=== PATIENT | female | born 1980 | race Caucasian/White ===

== ENCOUNTER 2025-02-13 00:39 | Day surgery (SDC) | payer BC, SELFPAY ==
[2025-02-04 13:08] VITALS: BMI 30.4
--- NOTE | 2025-02-04 13:19 | PC.NURSE ---
Addendum entered by Asael Pepe RN 02/04/25 13:26: No food or drink after midnight. Original Note: Report to the Outpatient Waiting Room, entrance under the green pavilion located off [facility], at time _0745_ on date _[id number]_. Planned Procedure Time: _0945_. Time changes happen often and if your time is changed the preop area will call you the afternoon before. - You and your visitor will be asked to self-screen and do not enter if you have any COVID symptoms. Please call surgeon if you need to reschedule. - A mask is optional within the hospital at this time. - No food from midnight until time of surgery and no smoking, or chewing tobacco (or any form of nicotine). No chewing gum, candy or mints. Take only the following medications with a SIP of water on the morning of surgery: __None___ DO NOT STOP ANY OF YOUR OTHER PRESCRIPTION MEDICATIONS PRIOR TO SURGERY EXCEPT THE FOLLOWING Hold all vitamins and supplements for 3 days per anesthesiologist. Medications to discontinue per physician ____Zepbound, skip dose this sunday._ Date to take last dose Please no make-up, nail turkish, hairspray, perfume, deodorant, or body powder the day of surgery. No jewelry (including any body piercings) or valuables the day of surgery, leave them at home. Please take a shower or bath the night before, or the morning of, surgery with an antibacterial soap. Wear comfortable, loose fitting clothing. - Jewelry must be removed prior to entering the operating room. Rings and piercings that are not removed may be cut off. - The hospital will not accept responsibility for valuables. - Please leave all valuables, including medications, at home the day of surgery. If you are going home after surgery, a licensed emergency medical technician/driver must drive you home. - NO public transportation without another adult if you receive anesthesia. - We recommend that an adult stay with you for 24 hours following discharge. - We also recommend that you do not drive, make important decision, drink alcoholic beverages, or take any drugs that were not prescribed by your health care provider for at least 24 hours after your discharge time. Follow any additional instructions given to you from your surgeon. Telephone instructions given to __Dawn__and asked if any additional questions and then verbalized understanding. Patient advised to call surgeon office or pre surgery nurse liaison [phone] if any additional questions.
--- OUTSIDE RECORDS SUMMARY | 2025-02-13 00:42 | XMS_ITS | Clinical Summary ---
Author Organization [facility] Address [address] [place] [id number] Care Team Providers Care Chucking Lathe Operator Name Role Phone Unavailable Primary Care Provider Unavailabl e Social History Tobacco Use Types Packs/Day Years Used Date Smoking Tobacco: Never Assessed Comments Unknown Sex and Gender Information Value Date Recorded Sex Assigned at Not on file Legal Sex Female 7:33 PM CDT Gender Identity Not on file Sexual Orientation Not on file Plan of Treatment Health Maintenance Due Date Last Done Comments Cervical Cancer Screening Pa p Smear (Age 30 to 64) Every 3 Years 1981 Annual Physical 1984 Hepatitis C 1999 DTaP, Tdap and Td Vaccines ( 1 - Tdap) 2000 Hepatitis B Vaccines (1 of 3 - 19+ 3-dose series) 2000 Cervical Cancer Screening Pa p with HPV Testing (Age 30 to 64) Every 5 Years 2011 Cervical Cancer Screening with HPV 2011 Mammogram Screening 2021 COVID-19 Vaccine (2023-2 5 season) 2024 HPV Vaccines Aged Out No longer eligi ble based on patient's age to complete this topic Meningococcal B Vaccine Aged Out No l onger eligible based on patient's age to complete this topic Meningococcal Vaccine Aged Out No lele azar eligible based on patient's age to complete this topic Pneumococcal Vaccine: Pediat rics (0 to 5 Years) and At-Risk Patients (6 to 49 Years) Aged Out No longer eligible b ased on patient's age to complete this topic RSV Immunizations Under 20 Months Aged Out No longer eligible based on patient's age to complete this topic
--- OUTSIDE RECORDS SUMMARY | 2025-02-13 00:42 | XMS_ITS | Clinical Summary ---
[facility] Address [address] [place] [address] Care Team Providers Care Towel Sewer Name Role Phone Unavailable Primary Care Provider Unavailabl e Medications tirzepatide, weight loss, (Zepbound) 2.5 mg/0.5 mL Pen Injector Inject 2.5 mg by subcutaneous injection every 7 days. 2 mL 6 12/17/2023 3:35 PM CDT 4 Active tirzepatide, weight loss, (Zepbound) 2.5 mg/0.5 mL Pen Injector Inject 2.5 mg every week by subcutaneous route for 28 days. 2 mL 2 01/15/2024 2:02 PM CDT 4 Active tirzepatide, weight loss, (Zepbound) 5 mg/0.5 mL Pen Injector Inject 5 mg every week by subcutaneous route as directed for 28 days. 2 mL 1 02/11/2024 1:07 PM CDT 4 Active ondansetron (ZOFRAN ODT) 4 mg Tablet, Rapid Dissolve Place 1 tablet 3 times a day by translingual route as needed for 30 days. 90 Tablet 6 4 Active tirzepatide, weight loss, (Zepbound) 5 mg/0.5 mL Pen Injector Inject 5 mg every week by subcutaneous route as directed for 28 days. 2 mL 1 4 Active cyanocobalamin (VITAMIN B-12) 1,[address], [address] 1 Tablet (1,000 mcg) under tongue 2 times daily. 60 Tablet 6 4 Active tirzepatide, weight loss, (Zepbound) 5 mg/0.5 mL Pen Injector Inject 5 mg by subcutaneous injection every 7 days. 2 mL 1 4 Active Encounters Date Type Department Care Team Description 12/17/2024 External Device Data [facility] ABSTRACTION Provider, Abstract 12/06/2024 External Device Data [facility] ABSTRACTION Provider, Abstract 12/05/2024 External Device Data [facility] ABSTRACTION Provider, Abstract 12/02/2024 External Device Data [facility] ABSTRACTION Provider, Abstract 11/18/2024 External Device Data [facility] ABSTRACTION Provider, Abstract from Last 3 Months Social History Tobacco Use Types Packs/Day Years Used Date Smoking Tobacco: Never Assessed Comments Unknown Sex and Gender Information Value Date Recorded Sex Assigned at Not on file Legal Sex Female 10:55 AM CDT Gender Identity Not on file Sexual Orientation Not on file Plan of Treatment Health Maintenance Due Date Last Done Comments DTAP/TDAP/TD VACCINES (1 - Tdap) 2000 HEPATITIS B VACCINES (1 of 3 - 19+ 3-dose series) 2000 HPV/Cotest (21-29) 2002 CERVICAL CANCER SCREENING 2011 HPV/Cotest (30-65) 2011 PAP SMEAR 2011 BREAST CANCER SCREENING 2021 INFLUENZA VACCINE (#1) 2024 HPV VACCINES Aged Out No longer eligi ble based on patient's age to complete this topic Insurance [employer] [facility] [employer], [employer] (INTERNAL) [facility]
--- OUTSIDE RECORDS SUMMARY | 2025-02-13 00:42 | XMS_ITS | Referral Summary ---
Author Organization [facility] Address [address] [place] [id number] Care Team Providers Care It Service Delivery Manager Name Role Phone Spencer Severino Primary Care Provider + Encounters Date Type Department Care Team Description 12/01/2024 11:00 AM PBX INSPECTOR Therapy [facility] OP Physical Therapy [address] [place] [phone] Other specified disorders of synovium and tendon, unspecified wrist from Last 3 Months Social History Tobacco Use Types Packs/Day Years Used Date Smoking Tobacco: Never Assessed Comments Unknown Sex and Gender Information Value Date Recorded Sex Assigned at Not on file Legal Sex Female 7:32 AM PBX INSPECTOR Gender Identity Not on file Sexual Orientation Not on file Plan of Treatment Not on file Insurance [employer] OOS Member Subscriber Plan / Payer (Ef fective 2023-Present) Name:Winter Maguirerhina Lorenzo Relation to Subscriber:Self Name:Andrez Olga Lorenzo Payer ID:[id number] (NAIC) Type:KAUSHIK SULLIVAN Address: [facility] [id number] [id number] Care Teams It Service Delivery Manager Relationship Specialty Start Date End Date Spencer Severino PA [address] [place] [address] [place] [address] PCP - General Internal Medicine 11/06/24
--- OUTSIDE RECORDS SUMMARY | 2025-02-13 00:42 | XMS_ITS | Clinical Summary ---
Author Organization [facility] Address [address] [place] [id number] Care Team Providers Care Chemical Pumper Name Role Phone Spencer Severino Primary Care Provider + Encounters Date Type Department Care Team Description 12/01/2024 11:00 AM CNMT Therapy [facility] OP Physical Therapy [address] [place] [phone] Other specified disorders of synovium and tendon, unspecified wrist from Last 3 Months Social History Tobacco Use Types Packs/Day Years Used Date Smoking Tobacco: Never Assessed Comments Unknown Sex and Gender Information Value Date Recorded Sex Assigned at Not on file Legal Sex Female 7:32 AM CNMT Gender Identity Not on file Sexual Orientation Not on file Plan of Treatment Health Maintenance Due Date Last Done Comments Breast Cancer Screening-Mammogram 1981 Cervical Cancer Screening 1981 Depression Screening 1981 Hepatitis C Screening 1981 DTaP/Tdap/Td Vaccine (1 - Tdap) 1992 Varicella Vaccines (1 of 2 - 13+ 2-dose series) 1994 Hepatitis B Screening 1999 Regular Well Visit/Exam 18-64 1999 Covid-19 Vaccine (3 2023-2 5 season) 2024 06/07/2021, 05/09/2021 Influenza Vaccine (#1) 2024 HPV Vaccines Aged Out No longer eligi ble based on patient's age to complete this topic Pneumococcal vaccine <65 Aged Out No longer eligible based on patient's age to complete this topic Insurance [employer] OOS Care Teams Chemical Pumper Relationship Specialty Start Date End Date Spencer Severino PA [address] [place] [address] [place] [address] PCP - General Internal Medicine 11/06/24
--- OUTSIDE RECORDS SUMMARY | 2025-02-13 00:42 | XMS_ITS | Data Portability ---
Author Organization [facility], Main Office Address [address] [place] [address] Assessment No assessment recorded. Plan of Treatment Reminders Order Date Submit Date Provider Last Modified By Organization Details Last Modified Time Details Appointments Follow Up 15 2024 08:00A JYOTI Ross Not available Not available Not available Lab vitamin B12 + folate, serum or blood 2024 025 [email or web address] [facility] (Lab), [address] [place], [address], 02/06/2025 10:34:09 vitamin D, 25-hydrox y, total, serum 2024 025 [email or web address] [address] [facility] (Lab), [address] [place], [address], 02/06/2025 10:34:09 lipid panel, serum 2024 025 [email or web address] [address] [facility] (Lab), [address] [place], [address], 02/06/2025 10:34:09 CMP, serum or plasma 2024 025 [email or web address] [address] [facility] (Lab), [address] [place], [address], 02/06/2025 10:34:09 TSH, serum or plasma 2024 025 [email or web address] [address] [facility] (Lab), [address] [place], [address], 02/06/2025 10:34:10 CBC w/ auto diff 2024 025 [email or web address] [address] [facility] ([facility]), [address], [place], [address], 02/06/2025 10:34:09 vitamin B12 + folate, serum or blood 2023 024 [email or web address] Not available 03/21/2024 08:31:32 HbA1c (hemoglob in A1c), blood 2023 024 [email or web address] Not available 03/20/2024 22:06:56 lipid panel, serum 2023 024 [email or web address] Not available 03/21/2024 08:31:32 CMP, serum or plasma 2023 024 Not available 03/21/2024 08:31:32 CK (creatine kinase), total, serum 2023 024 [email or web address] Not available 03/21/2024 08:31:32 TSH, serum or plasma 2023 024 [email or web address] Not available 03/21/2024 08:31:32 CBC w/ auto diff 2023 024 Not available 03/21/2024 08:31:32 Referral None recorded. Procedures None recorded. Surgeries None recorded. Imaging electromy ogram + nerve conductio n study - Please call patient to schedule. [address] [facility], [address] [facility] , [address], [place], [address], 12/02/2024 11:21:03 Medication Orders cyanocoba louise (vit B-12) 1,000 mcg sublingua l tablet 2024 025 [place] [id number], [address] [facility], [place], [place], [id number], 02/06/2025 10:34:03 Zepbound 7.5 mg/0.5 mL subcutane ous pen injector 2024 025 [facility] [address] [place] [address] [id number], [address] [facility], [place], [id number], 02/06/2025 10:25:59 Zepbound 2.5 mg/0.5 mL subcutane ous pen injector [address] [facility]70641, [address] [facility], [place], [place], [id number], 11/08/2024 17:22:28 ondansetr on 4 mg disintegr ating tablet 2024 025 [facility]84, [address] [facility], [place], [place], [id number], 11/05/2024 16:30:18 Zepbound 5 mg/0.5 mL subcutane ous pen injector 2023 024 [facility] V[place]as, [facility] Surendra Manriquez, JESSICA Vale, [id number], 03/14/2024 12:31:08 ondansetr on 4 mg disintegr ating tablet 2023 024 [facility] David Vagras, [facility] Surendra , JESSICA Vale, [id number], 02/14/2024 10:32:50 Patient TargetsNo targets recorded. Patient InstructionsNo instructions recorded. Reason for Referral None Reported. Results Created Date Observation Date Name Description Value Unit Range Abnormal Flag Note LastModifiedBy Organization Detail LastModifiedTime 12/03/1912/01/2024 elect romyo gram + nerve condu ction study No observ ation record ed. [facility] PT, OT, Speech Therapy [address] [facility] [place], [address], 12/02/2024 11:21:03 12/04/19 25 12/01/2024 elect romyo gram + nerve condu ction study No observ ation record ed. [email or web address] PT, OT, Speech Therapy [address] [facility] , [place], [address], 12/05/2024 10:27:52 Result Notes None recorded. Problems Name Problem SNOMED Code Status Onset Date Resolution Date Notes Provider Name and Address Organization Details Recorded Time Increased estrogen level 082195489 Active 2019 Not Available [facility] 3 01:00:04 Obesity 290686284 Active 2020 Not Available [facility] 3 01:00:04 Vitamin B12 deficienc y (non anemic) 42046346 Active 2019 Not Available [facility] 3 01:00:04 Prediabet es 562963915 Active 2019 Not Available [facility] 3 01:00:04 Failure to lose weight 81933833 Active 2022 JYOTI Franco [address], [address], [place], [address] , [employer] [facility] [employer] 3 15:19:15 Screening for disorder Active 2022 JYOTI Franco [address], [address], [place], [address] , [employer] [place] [employer] [facility] 3 15:23:46 Nausea 355876844 Active 2022 JYOTI Franco [address], [address], [place], [address] , [employer] [facility] [employer] [facility] 3 09:44:04 Hyperlipi demia 76455613 Active 2022 JYOTI Franco [address], [address], [place], [address] , [employer] [facility] [employer] [facility] 3 09:51:17 Screening for malignant neoplasm of breast Active 2022 JYOTI Franco [address], [address], [place], [address] , [employer] 3 10:02:31 Mammograp hy abnormal 137550062 Active 2022 asymmetry left breast retroareo lar area JYOTI Franco [address], [address], [place], [address] , [employer] 3 16:03:41 Abnormal weight 34353648 Active 2023 Shavonne Johnson MA null, [employer] 4 09:31:58 Liver enzymes level above reference range 516646742 Active 2023 JYOTI Franco [address], [address], [place], [address] , [employer] 4 10:22:37 Tendiniti s of wrist 982765450 Active 2024 JYOTI Franco [address], [address], [place], [address] , [employer] 5 16:22:02 Bilateral carpal tunnel syndrome 60068236335 312970 Active 2024 JYOTI Franco [address], [address], [place], [address] , [employer] 5 10:28:43 Essential hypertens ion 77577815 Active 2024 Rosibel Shannon null, [employer] 5 15:30:38 Problem Notes None recorded. Procedures Surgical History Date Name Laterality Status Provider Name and Address Organization Details Recorded Time 1 INSTRUCTIONAL INTERVENTIONIST Surgery completed Not Available [facility] 11/30/19 00:48:56 1 INSTRUCTIONAL INTERVENTIONIST Surgery completed Not Available [facility] 11/30/19 00:48:56 section completed Not Available [facility] 11/29/2022 00:48:56 Tubal Ligation completed Not Available [facility] 11/29/2022 00:48:56 Imaging Results Imaging Date Name Status LastModified by Organization Details LastModified Time 12/01/2024 electromyogram + nerve conduction study active [facility] PT, OT, Speech Therapy [address] [place] [address] [place], [address], 12/02/2024 11:21:03 12/01/2024 electromyogram + nerve conduction study completed [address] PT, OT, Speech Therapy [address] [facility] [place], [address], 12/05/2024 10:27:52 Procedure Notes None recorded. Medical Equipment None Reported. Allergies Allergen ID Allergen Name Allergen Category Reaction Reaction Severity Criticality Documentation Date Start Date Code Code System Note Provider Name and Address Organization Details Recorded Time 1891 morphine medicatio n vomiting severe Not available 11/29/2022 7052 RxNorm Not Available [facility] 01:17:57 Medications Name Sig Start Date Stop Date Status Note LastModified by Organization Details LastModified Time amoxicill in 500 mg capsule TAKE 1 CAPSULE BY MOUTH EVERY 12 HOURS WITH FOOD FOR 10 DAYS 03/21 completed Not Available Not Available Not Available metronida zole 0.75 % (37.5 mg/5 gram) vaginal gel INSERT 1 APPLICAT ORFUL VAGINALL Y QD FOR 5 DAYS 04/26 completed Not Available Not Available Not Available phentermi ne 37.5 mg tablet Take 1 tablet every day by oral route for 30 days. 02/13 completed Not Available Not Available Not Available cyanocoba louise (vit B-12) 1,000 mcg/mL injection solution INJECT 1 ML DIRECTED EACH MONTH 03/21 completed Not Available Not Available Not Available neomycin- polymyxin -dexameth 3.5 mg/mL-10, 000 unit/mL-0 .1% eye drops INSTILL 1 DROP RIGHT EYE FOUR TIMES DAILY X 5 DAYS 03/14 completed Not Available Not Available Not Available insulin syringe U-100 with needle 1 mL 31 gauge x 02/13 USE TO INJECT B12 03/21 completed Not Available Not Available Not Available cyanocoba louise (vit B-12) 1,000 mcg sublingua l tablet Place 1 tablet twice a day by sublingu al route for 30 days. 2024 active Not Available Not Available Not Avai lable ondansetr on 4 mg disintegr ating tablet DISSOLVE 1 TABLET ON THE TONGUE THREE TIMES DAILY NEEDED active Not Available Not Available No t Available metformin ER 500 mg tablet,ex tended release 24 hr TK 1 T PO QD active Not Available Not Available No t Available ezetimibe 10 mg tablet TAKE 1 TABLET BY MOUTH EVERY DAY IN THE MORNING 11/14 completed made her dry mouthed , headache Not Available Not Available Not Available omega-3 acid ethyl esters 1 gram capsule Take by oral route for 30 days. 03/14 completed Not Available Not Available Not Available Seymour 3 active Not Available Not Avail able Not Available metformin ER 500 mg 24 hr tablet,ex tended release (gastric retention ) Take 1 tablet every day by oral route for 30 days. 10/06 completed Not Available Not Available Not Available Saxenda 3 mg/0.5 mL (18 mg/3 mL) subcutane ous pen injector ADMINIST ER 0.6 MG UNDER THE SKIN DAILY FOR 1 WEEK. INCREASE DOSE WEEKLY BY 0.6 MG UNTIL REACHING 3.0 MG DAILY INJECTIO N active Not Available Not Available No t Available BD Arpita 2nd Gen Pen Needle 32 gauge x 5/32 USE DIRECTED DAILY WITH SAXENDA 03/21 completed Not Available Not Available Not Available Wegovy 0.25 mg/0.5 mL subcutane ous pen injector Inject 0.25 mg every week by subcutan eous route for 30 days. 11/14 completed Not Available Not Available Not Available Wegovy 0.5 mg/0.5 mL subcutane ous pen injector Inject 0.5 mg every week by subcutan eous route for 30 days. 11/14 completed Not Available Not Available Not Available Ozempic 2 mg/dose (8 mg/3 mL) subcutane ous pen injector titrate up slowly 11/14 completed Not Available Not Available Not Available Zepbound 5 mg/0.5 mL subcutane ous pen injector ADMINIST ER 5 MG UNDER THE SKIN EVERY WEEK DIRECTED active Not Available Not Available No t Available Zepbound 2.5 mg/0.5 mL subcutane ous pen injector ADMINIST ER 2.5 MG UNDER THE SKIN EVERY WEEK active Not Available Not Available No t Available Zepbound 7.5 mg/0.5 mL subcutane ous pen injector Inject 7.5 mg every week by subcutan eous route for 30 days. 2024 active Not Available Not Available Not Avai lable Vitals Date Recorded Body height Body mass index (BMI) Body weight Body temperature Heart rate Oxygen saturation Oxygen saturation in Arterial blood by Pulse oximetry Systolic blood pressure Diastolic blood pressure Provider Name and Address Organization Details Last Updated DateTime 4 175.26 cm 30 kg/m2 79839.3 5 g 97.6 [degF] 90 /min 98 % 98 % 106 mm[Hg] 81 mm[Hg] Jovita Rodriguez [place] [employer] [facility] 4 10:39:36 Date Recorded Body height Body mass index (BMI) Body weight Body temperature Respiratory rate Heart rate Oxygen saturation Oxygen saturation in Arterial blood by Pulse oximetry Systolic blood pressure Diastolic blood pressure Provider Name and Address Organization Details Last Updated DateTime 4 175.26 cm 29.7 kg/m2 01447.0 7 g 98.8 [degF] 16 /min 72 /min 98 % 98 % 96 mm[Hg] 60 mm[Hg] Christine Marshall RN [facility] 4 12:09:52 Date Recorded Body height Body mass index (BMI) Body weight Body temperature Heart rate Oxygen saturation Oxygen saturation in Arterial blood by Pulse oximetry Systolic blood pressure Diastolic blood pressure Provider Name and Address Organization Details Last Updated DateTime 5 175.26 cm 32.4 kg/m2 63561.8 8 g 97.9 [degF] 87 /min 98 % 98 % 110 mm[Hg] 72 mm[Hg] Nel Martin RN [employer] [facility] 5 16:13:28 Date Recorded Body height Body mass index (BMI) Body weight Body temperature Oxygen saturation Oxygen saturation in Arterial blood by Pulse oximetry Heart rate Systolic blood pressure Diastolic blood pressure Provider Name and Address Organization Details Last Updated DateTime 5 172.72 cm 32.8 kg/m2 08648.1 6 g 98.2 [degF] 99 % 99 % 99 /min 120 mm[Hg] 80 mm[Hg] Olga Uribe RN [facility] 10:21:49 Date Recorded Body height Body mass index (BMI) Body weight Body temperature Heart rate Oxygen saturation Oxygen saturation in Arterial blood by Pulse oximetry Systolic blood pressure Diastolic blood pressure Provider Name and Address Organization Details Last Updated DateTime 5 172.72 cm 31.3 kg/m2 62974.0 3 g 97.2 [degF] 98 /min 100 % 100 % 124 mm[Hg] 80 mm[Hg] BETH Kirkpatrick [facility] [employer] [facility] 10:13:38 Social History Question Answer Notes LastModified by [employer] Details LastModified Time Tobacco Smoking Status Current Some Day Smoker Not Available [facility] 11/29/2022 00:47:57 What Is Your Level Of Caffeine Consumption? Heavy [id number] Information not available 11/29/2022 Which Illicit Or Recreational Drugs Have You Used? None [id number] Information not available 11/29/2022 Do You Use Your Seat Belt Or Car Seat Routinely? Yes [email or web address] Information not available 03/15/2023 Do You Participate In Social Media? Yes [email or web address] Information not available 03/15/2023 Sex: Unknown Functional Status Question Answer Note LastModified by [employer] Details LastModified Time What is your level of alcohol consumption? 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 Occasional [id number] Information not available 11/29/2022 Mental Status Question Answer Note LastModified by Organization D etails LastModified Time Do you feel stressed (tense, restless, nervous, or anxious, or unable to sleep at night)? [id number] [email or web address] Information not available 03/15/2023 Family History Relationship Description Onset Age of this Age Resolved Age Notes LastModified by Organization Details LastModified Time Maternal Aunt Malignant tumor of cervix [email or web address] Not available 2024 10:12:29 Mother Diabetes mellitus [id number] Not available 11/29/2022 00:49:04 Medical History Condition Response HEADACHES/MIGRAINES Y HEARTBURN / REFLUX Y EYE PROBLEMS Y ADD/ADHD Y SLEEP DISORDER Y Gynecological HistoryNo gynecological history recorded. Obstetrics History GPAL:G 0 P 0 0 0 0 Past Encounters Encounter ID Performer Location Encounter Start Date Encounter Closed Date Diagnosis/Indication Diagnosis SNOMED-CT Code Diagnosis ICD10 Code Diagnosis Note [id number] [facility] Yvonne jaramillo [address] [place] [address] 12/01/2020 00:00:00 12/01/2020 12:12:10 [id number] Quinn Velazquez MD [facility] Yvonne jaramillo [address] [place] [address] [place] [address] 03/21/2022 00:00:00 03/22/2022 07:59:09 [id number] Quinn Velazquez MD [facility] [address] [place] [address] 02/13/2023 14:58:09 02/13/2023 15:35:16 Failure to lose weight 40821799 R63.8 Screening for disorder 734549202 Z13.9 Obesity 587956732 E66.9 [id number] Quinn Velazquez MD [facility] Yvonne jaramillo [address] [place] [address] 03/15/2023 09:03:22 03/15/2023 10:13:50 Nausea 689167343 R11.0 Failure to lose weight 86198991 R63.8 Hyperlipidemia 02096055 E78.5 Vitamin B1 2 deficiency (non anemic) 13249694 E53.8 Screening for malignant neoplasm of breast 212640919 Z12.39 [id number] Quinn Velazquez MD [facility] Yvonne jaramillo [facility] [place] [address] 11/14/2023 09:29:22 11/14/2023 10:02:31 Abnormal weight 57839897 R63.4 Obesity 201456230 E66.9 Mammography abnormal 168 042987 R92.8 [id number] Albino Rae MD [facility] [place] [address] [facility] [place] [address] 02/14/2024 10:01:54 02/14/2024 10:34:39 Nausea 287423632 R11.0 Hyperlipidemia 91240732 E78.5 Vitamin B1 2 deficiency (non anemic) 24002714 E53.8 [id number] Albino Rae MD [facility] [place] [address] [facility] [place] [address] 03/14/2024 12:00:55 03/14/2024 12:34:54 Obesity 515237699 E66.9 Hyperlipidemia 67163589 E78.5 Vitamin B1 2 deficiency (non anemic) 19998469 E53.8 [id number] Albino Rae MD [address] [address] 11/05/2024 15:54:53 11/05/2024 16:32:38 Obesity 952016217 E66.9 Tendinitis of wrist 4238 83134 M67.839 bilateral Nausea 282800793 R11.0 Hyperlipidemia 11942559 E78.5 [id number] Albino Rae MD [address] [address] 12/05/2024 10:12:15 12/05/2024 12:20:32 Essential hypertension 84440611 I10 Obesity 846086194 E66.9 [id number] Albino Rae MD [address] [address] 02/06/2025 09:59:00 02/12/2025 12:16:08 Obesity 814812735 E66.9 Hyperlipidemia 82570970 E78.5 Vitamin B1 2 deficiency (non anemic) 39779322 E53.8 Essential hypertension 92929968 I10 Bilateral carpal tunnel syndrome 6255188138 2186276 G56.03 Health Concerns Section Related Observation LastModified by Organization Detai ls LastModified Time None Recorded Concern Status LastModified by Organization Details LastModified Time None Recorded Advance Directives Directive None Recorded Payers Encounter Date Sequence Insurance Name Policy Number Policy Mendiola Covered Member ID Mendiola Member ID Guarantor Name 02/14/2024 1 [place] [id number] Olga M Ninness [id number] Olga M Ninness 03/14/2024 1 [place] [id number] Olga M Ninness [id number] Olga M Ninness 11/05/2024 1 [place] [id number] Olga M Ninness [id number] Olga M Ninness 12/05/2024 1 [place] [id number] Olga M Ninness [id number] Olga M Ninness 02/06/2025 1 [place] [id number] Olga M Ninness [id number] Olga M Ninness Notes Date Note Type Note Provider Name and Address Organization Details Recorded Time 02/14/2024 text/html no changes JYOTI Franco [address], [place], [address], [employer] 03/09/2024 16:21:43 03/14/2024 text/html no changes JYOTI Franco [address], [place], [address], [employer] 03/29/2024 10:24:38 11/05/2024 text/html tried and failed diet and exercise over 6 months ,avoids sugar has .pcos. has had success with zepbound , weight was really dropping but supply side issues . typing over the years , wrists numb , weak , right elbow too, last 8 weeks the worst ever , JYOTI Franco [address], [place], [address], [employer] 11/08/2024 17:25:10 12/05/2024 text/html happy with weight loss Rosibel appiah, [employer] [facility] 01/12/2025 15:31:04 02/06/2025 text/html doing well .... JYOTI Franco [address] [facility], [facility] [address], [place], [address], [facility] [employer] [facility] 02/11/2025 14:11:19 OBGyn Episode No OBEpisode recorded.
--- NOTE | 2025-02-13 06:43 | PM.HPGS ---
History of Present Illness History of Present Illness Chief complaint: right carpal and cubital tunnel syndrome Narrative: Patient seen and examined in pre-operative holding area. No interval change in medical history or symptoms. Patient recalls previous discussion of benefits and alternatives to procedure. Continues to desire to proceed with right endoscopic possible open carpal tunnel release and right cubital tunnel release. Reviewed procedure, post-op expectations and risks including but not limited to bleeding, infection, injury to tendon/nerve/vessel, decreased hand function, stiffness, RSD, no change or worsening of symptoms. I discussed the possible use of assistants and their participation in the case. Patient stated understanding and signed the consent form wishing to proceed. Review of Systems Review of Systems: All systems reviewed & are unremarkable except as noted in HPI and below PMFSH Past Medical History Medical History ADHD (attention deficit hyperactivity disorder) GERD (gastroesophageal reflux disease) Headache Surgical History Surgical History Delivery by section (12/05/05) primary c/ s Delivery by section (10/25/06) rpt c/s H/O tubal ligation (~2006) History of hysteroscopy (06/20/11) hscope D&C History of robot-assisted laparoscopic hysterectomy (08/29/11) [facility] Family History Family History (Updated 02/14/24 @ 10:36 by BETH Ying) Mother Diabetes mellitus Other Cervical cancer maternal aunt Social History Social History (Updated 03/12/24 @ 14:08 by BETH Ying) Years smoked: 10 Smoking status: Current every day smoker Tobacco type: cigarettes Second hand tobacco smoke exposure: Yes Alcohol intake: current Drinks per week: 1 Substance use: never Substance use type: does not use Do You Feel Safe in your Home?: Yes Living arrangements: with family Additional living arrangements comments: Engaged Occupation/Education: occupation 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 Gender identity (if verbalized by the patient): Female Sexual Orientation (if Verbalized by the Patient): Straight or Heterosexual Spiritual care concerns: No Meds Home Medications and Allergies Home Medications Medication Instructions Recorded Confirmed Type tirzepatide (weight loss) 5 mg/0.5 5 mg subcut WEEKLY 03/12/24 02/04/25 History mL subcutaneous pen injector (Zepbound) tramadol 50 mg tablet 50 mg PO Q6H PRN pain #12 tabs 02/13/25 Rx Allergies Allergy/AdvReac Type Severity Reaction Status Date / Time morphine Allergy Mild Vomiting Verified 02/04/25 13:06 Exam Narrative: unchanged Assessment and Plan Assessment and plan (1) Bilateral carpal tunnel syndrome: Code(s): G56.03 - Carpal tunnel syndrome, bilateral upper limbs Status: Acute Assessment and Plan: cont as above (2) Ulnar neuropathy at elbow: Qualifiers: Laterality: unspecified laterality Qualified Code(s): G56.20 - Lesion of ulnar nerve, unspecified upper limb Code(s): G56.20 - Lesion of ulnar nerve, unspecified upper limb Status: Acute
--- NOTE | 2025-02-13 06:43 | W.PM.PROC2 ---
Procedure Note - Detailed Date of Procedure 02/13/25 Pre-op Diagnosis right carpal and cubital tunnel syndrome Post-op Diagnosis Same Procedure Performed right ectr and CuTR Surgeon Eduar Santizo MD Screw Machine Operator juana florez pa-c Anesthesia MAC Description of Procedure INFORMED CONSENT: The patient was seen and examined and marked in the pre-op area. The patient signed the consent form. PROCEDURE IN DETAIL:The patient taken back to OR on the stretcher in supine position. Time out performed with anesthesia, surgeon and staff agreeing on patient's name site and surgery to be performed SCDs were placed on the lower extremities and inflated. A tourniquet was placed on {right} upper extremity and antibiotics given IV After anesthesia administered sedation I injected {10}cc 1%lido with epi and 0.5% marcaine plain at the operative sites The {right upper extremity} was prepped and draped in sterile fashion the {right upper extremity} was exsanguinated with Esmarch bandage and tourniquet inflated to 250mmHg I made a transverse incision in the {right} volar distal wrist crease through skin and dermis with 15 blade scalpel. Littler scissors spread down to antebrachial fascia. A small incision was made in antebrachial fascia allowing access to Carpal tunnel. I proceeded with sequential dilation staying in line with the ring finger and hugging the hook of the hamate. I then used the synovial elevator to free any adhesions from the underside of the transverse carpal ligament. Next I was able to insert the Microaire endoscopic carpal tunnel device with direct visualization of the transverse fibers on the monitor and proceeded with complete segmental retrograde release of the ligament in its entirety. I irrigated with normal saline and closed with 4-0 monocryl for dermis and subcuticular closure. I next proceeded with making a longitudinal incision between two heads for flexor carpi ulnaris at end of {right} cubital tunnel with 15 blade scalpel. Littler scissors were used to spread down to FCU fascia. An incision was made in FCU fascia and ulnar nerve identified exiting cubital tunnel. I proceeded with complete retrograde release of the cubital tunnel including 7cm proximal for the intermuscular septum. The nerve appeared healthy with visible vaso nervorum. There was no subluxation on full elbow range of motion. I irrigated with normal saline and closure with 4-0 monocryl for dermis and subcuticular. The incisions were covered with Dermabond then 4x4s, jose, and a posterior elbow and volar wrist splint for patient safety, security and comfort and secured with corrina bandages after the tourniquet was let down noting the hand was warm and well perfused. Patient awaken from anesthesia and transferred to recovery in stable condition Complications - none EBL- 1cc Disposition - home in stable conditions juana florez pa-c was essential for positioning, retraction, closure and dressing placement [facility] [place] Billing Surgery - Charge Forward: Surgery Billing ([id number] same for juana adding )
[2025-02-13 07:46] VITALS: BP 110/77; PULSE 87; RESP 18; TEMP 36.4; O2SAT 99; BMI 31.2
--- NOTE | 2025-02-13 09:33 | P.PNAN_ITS ---
Anes - Initial Pre Proc Eval Procedure: Operation Date: 02/13/25 09:45 Proposed Procedures p Right Endoscopic Carpal Tunnel Release, Possible Open, Right Cubital Tunnel Release - Eduar Santizo MD Date/Time: 02/13/25 09:33 Surgeon: Eduar Santizo MD Pre Op Diagnosis: right carpal and cubital tunnel syndrome Patient Data Age: 44 Gender: F Height: 1.71 m Weight: 91.9 kg Last Vital Signs Temp 36.4 C 02/13/25 07:46 Pulse 87 02/13/25 07:46 Resp 18 02/13/25 07:46 BP 110/77 02/13/25 07:46 Pulse Ox 99 02/13/25 07:46 O2 Del Method Room Air 02/13/25 07:46 Allergies Allergy/AdvReac Type Severity Reaction Status Date / Time morphine Allergy Mild Vomiting Verified 02/13/25 08:31 Home Medications Medication Instructions Recorded Confirmed Type tirzepatide (weight loss) 5 mg/0.5 5 mg subcut WEEKLY 03/12/24 02/04/25 History mL subcutaneous pen injector (Zepbound) tramadol 50 mg tablet 50 mg PO Q6H PRN pain #12 tabs 02/13/25 Rx Patient hx anesthesia problems: none Family hx anesthesia problems: none Results Review: All pre-operative results and documents have been reviewed as part of the pre- operative evaluation. [facility] Past Medical History Medical History GERD (gastroesophageal reflux disease) Headache ADHD (attention deficit hyperactivity disorder) Surgical History Surgical History H/O tubal ligation (~2006) Delivery by section (10/25/06) rpt c/s Delivery by section (12/05/05) primary c/ s History of hysteroscopy (06/20/11) hscope D&C History of robot-assisted laparoscopic hysterectomy (08/29/11) RATLH Family History Family History Mother Diabetes mellitus Other Cervical cancer maternal aunt Social History Social History Years smoked: 10 Smoking status: Current every day smoker Tobacco type: cigarettes Second hand tobacco smoke exposure: Yes Alcohol intake: current Drinks per week: 1 Substance use: never Substance use type: does not use Do You Feel Safe in your Home?: Yes Living arrangements: with family Additional living arrangements comments: Engaged Occupation/Education: occupation 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 Gender identity (if verbalized by the patient): Female Sexual Orientation (if Verbalized by the Patient): Straight or Heterosexual Spiritual care concerns: No Anes - Eval Final PreProcedure Day of Procedure 02/13/25 09:33 Patient weight: obese Heart: regular rate and rhythm Lungs: decreased breath sounds Airway: Mallampati scale class II Neurological: alert and oriented Last oral intake: >/= 8 hours ASA classification: II Emergent: no Anesthetic plan: proceed Anesthesia type and monitoring: general GIVS and standard monitoring Results Review: All pre-operative results and documents have been reviewed as part of the pre- operative evaluation. Informed Consent: The patient's anesthetic plan and its attendant risks and benefits were discussed with the patient/family/POA. Questions were solicited and answers provided to the satisfaction of the patient/family/POA.
[2025-02-13] MEDS: LACTATED RINGERS 1,000 ML 30 ML IV CONT (09:35)
[2025-02-13] MEDS: ceFAZolin 2 GM/D5W 50 ML 2 GM/50 ML BAG IVPB (09:45)
[2025-02-13] MEDS: LIDO 1%/EPINEPHRINE 1:100,000 20 ML VIAL 10 ML INFILTRATE (10:00)
[2025-02-13] MEDS: BUPivacaine HCL 0.5% 10 ML AMP INFILTRATE (10:00)
[2025-02-13 10:16] VITALS: BP 94/52; PULSE 97; RESP 20; O2SAT 99
[2025-02-13 10:45] VITALS: BP 111/66; PULSE 79; RESP 20; O2SAT 99
[2025-02-13 11:15] VITALS: BP 117/77; PULSE 75; RESP 20
== END 2025-02-13 11:17 | disposition home or self-care (01) ==
PROVIDERS: PCP Physician Assistant; Visit Provider Plastic Surgery
PROC: 01N54ZZ Release Median Nerve, Percutaneous Endoscopic Approach (ICD-10-PCS; CPT 29848; principal; 2025-02-13 09:45)
DX: G56.01 Carpal tunnel syndrome, right upper limb (principal); G56.21 Lesion of ulnar nerve, right upper limb
CPT/HCPCS: 29848; 64718; J0690; J2003; J2004; J2704; J7120